=== PATIENT | male | born 1965 | race Caucasian/White ===

== ENCOUNTER 2016-10-04 12:41 | Inpatient (IN) | payer OTHER ==
[~2016-10-04 12:41] MED LIST: LACTATED RINGER'S 1000 ML INJ 1,000 ML IV ONE; NEOSTIGMINE 3 MG/3 ML SYR IV ONE; ONDANSETRON HCL 4 MG/2 ML VIAL IV PUSH ONE; PROPOFOL 200 MG/20 ML AMP IV ONE
[2016-10-04] MEDS ORDERED: ceFAZolin 2 GM PREMIX 50 ML ONE (12:44)
[2016-10-04] MEDS ORDERED: DIPHTH/TETANUS/ACEL PERTUSSIS (BOOSTER) 0.5 ML VIAL/PFS IM ONE ×2 (12:44→13:06)
[2016-10-04 12:48] VITALS: O2SAT 98
[2016-10-04] MEDS ORDERED: MORPHINE SULFATE 8 MG/ML INJ ONE (12:53)
[2016-10-04] MEDS ORDERED: ONDANSETRON HCL 4 MG/2 ML VIAL ONE (12:53)
[2016-10-04 13:01] LABS: BASOPHIL % 0.6 % (0.0-2.0); EOSINOPHIL # 0.1 TH/MM3 (0-0.4); EOSINOPHIL % 0.7 % (0.0-4.0); HEMATOCRIT 46.6 % (39.0-51.0); HEMO FLAGS DIFF FINAL; LYMPH % 28.4 % (9.0-44.0); LYMPHOCYTE # 2.4 TH/MM3 (1.0-4.8); MEAN CELL VOLUME 90.8 FL (80.0-100.0); MEAN CORPUSCULAR HEMOGLOBIN 31.5 PG (27.0-34.0); MEAN CORPUSCULAR HGB CONC 34.7 % (32.0-36.0); MONO % 10.3 % (0.0-8.0); PLATELET COUNT 171 TH/MM3 (150-450); RED BLOOD COUNT 5.14 MIL/MM3 (4.50-5.90); RED CELL DISTRIBUTION WIDTH 12.8 % (11.6-17.2); WHITE BLOOD COUNT 8.4 TH/MM3 (4.0-11.0)
[2016-10-04 13:02] LABS: I-STAT POTASSIUM 3.5 MMOL/L (3.5-4.9)
--- NOTE | 2016-10-04 13:03 | PD ---
HPI Chief Complaint: Trauma (Alert) Time Seen by Provider: 12:47 Travel History International Travel<30 days: No Contact w/Intl Traveler<30days: No Traveled to known affect area: No History of Present Illness HPI 51-year-old male complains of buttock injury. Patient states that he fell into a hole and got impaled into the buttock by 2 metal rods. Patient removed the metal rods out of his buttock himself. Patient complains of pain on the buttock area. Patient denies any headache. Patient denies any neck pain. Patient denies any chest pain or shortness of breath. Patient denies abdominal pain. Patient denies any focal weakness or numbness of extremity. Patient is not up-to-date with TD booster. Patient denies any medical history. Patient denies any routine medication. Patient denies any allergy. Allergies-Medications (Allergen,Severity, Reaction): Coded Allergies: No Known Allergies (Unverified , 10/04/16) Review of Systems General / Constitutional: No: Fever Eyes: No: Visual changes HENT: No: Headaches Cardiovascular: No: Chest Pain or Discomfort Respiratory: No: Shortness of Breath Gastrointestinal: No: Abdominal Pain Genitourinary: No: Dysuria Musculoskeletal: No: Pain Skin: No Rash Neurologic: No: Weakness Psychiatric: No: Depression Endocrine: No: Polydipsia Hematologic/Lymphatic: No: Easy Bruising Physical Exam Narrative GENERAL: Well-nourished, well-developed patient. SKIN: Warm and dry. HEAD: Normocephalic. EYES: No scleral icterus. No injection or drainage. NECK: Supple, trachea midline. No JVD or lymphadenopathy. CARDIOVASCULAR: Regular rate and rhythm without murmurs, gallops, or rubs. RESPIRATORY: Breath sounds equal bilaterally. No accessory muscle use. GASTROINTESTINAL: Abdomen soft, non-tender, nondistended. MUSCULOSKELETAL: No cyanosis, or edema. BACK: Nontender without obvious deformity. No CVA tenderness. Patient has through and through wounds on the left buttock. The wounds are dirty. No active bleeding. Patient has a large wound on the right buttock also. The wound is dirty. No active bleeding. Data Data Last Documented VS Vital Signs Date Time Temp Pulse Resp B/P Pulse Ox O2 Delivery O2 Flow Rate FiO2 10/04/16 12:48 98 21 Orders Cefazolin 2 Gm Premix (Ancef 2 Gm Premix (10/04/16 12:44) Bowu-Pqq-Uigilt (Booster) Inj (Boostrix (10/04/16 12:44) I-Stat Profile (10/04/16 12:49) I-Stat Creatinine (10/04/16 12:49) Complete Blood Count With Diff (10/04/16 12:49) Prothrombin Time / Inr (Pt) (10/04/16 12:49) Act Partial Throm Time (Ptt) (10/04/16 12:49) Type And Screen (10/04/16 12:49) Chest, Single Ap (10/04/16 12:49) Pelvis, Ap Only (Routine) (10/04/16 12:49) Ct Abd/Pel W Iv Contrast(Rout) (10/04/16 12:49) Iv Access Insert/Monitor (10/04/16 12:49) Ecg Monitoring (10/04/16 12:49) Oximetry (10/04/16 12:49) Oxygen Administration (10/04/16 12:49) Morphine Inj (Morphine Inj) (10/04/16 12:53) Ondansetron Inj (Zofran Inj) (10/04/16 12:53) Ct Thorax/ Chest W Iv Contrast (10/04/16 12:54) Admit Order (Ed Use Only) (10/04/16 13:03) Labs Laboratory Tests Test 10/04/16 12:48 White Blood Count 8.4 TH/MM3 Red Blood Count 5.14 MIL/MM3 Hemoglobin 16.2 GM/DL Bedside Hemoglobin 16.7 G/DL Hematocrit 46.6 % Bedside Hematocrit 49.0 % Mean Corpuscular Volume 90.8 FL Mean Corpuscular Hemoglobin 31.5 PG Mean Corpuscular Hemoglobin 34.7 % Concent Red Cell Distribution Width 12.8 % Platelet Count 171 TH/MM3 Mean Platelet Volume 8.9 FL Neutrophils (%) (Auto) 60.0 % Lymphocytes (%) (Auto) 28.4 % Monocytes (%) (Auto) 10.3 % Eosinophils (%) (Auto) 0.7 % Basophils (%) (Auto) 0.6 % Neutrophils # (Auto) 5.0 TH/MM3 Lymphocytes # (Auto) 2.4 TH/MM3 Monocytes # (Auto) 0.9 TH/MM3 Eosinophils # (Auto) 0.1 TH/MM3 Basophils # (Auto) 0.0 TH/MM3 CBC Comment DIFF FINAL Differential Comment Prothrombin Time 10.7 SEC Prothromb Time International 1.0 RATIO Ratio Activated Partial 21.4 SEC Thromboplast Time Bedside Sodium 140 MMOL/L Bedside Potassium 3.5 MMOL/L Bedside Chloride 105 MMOL/L Bedside Blood Urea Nitrogen 17 MG/DL Bedside Creatinine 1.2 MG/DL Bedside Glucose 116 MG/DL Blood Type O POSITIVE Antibody Screen NEGATIVE MDM Medical Screen Exam Complete: Yes Emergency Medical Condition: Yes Interpretation(s) 1358 PM. CBC within normal limit. BMP within normal limit. Differential Diagnosis Differential diagnosis including soft tissue injury, bony injury, intra-pelvic abdominal injury. Narrative Course 51-year-old male was impaled by metal rods on the buttock bilateral. TD booster given. Ancef 2 g IV. Morphine 4 mg IV. Zofran 4 mg IV. Normal saline solution 1 25 cc an hour. Trauma Alert - Level One Trauma Alert Level One: Full trauma team activate Time Surgeon Summoned: 12:43 Diagnosis Diagnosis: Primary Impression: Penetrating injury Admitting Physician Requests: Admit Miguel Limon MD Oct 04, 2016 13:03
[2016-10-04] MEDS ORDERED: ceFAZolin 2 GM PREMIX 50 ML IV STA (13:06)
[2016-10-04 13:10] LABS: APTT (PATIENT) 21.4 SEC (24.3-30.1); PROTHROMBIN TIME - PATIENT 10.7 SEC (9.8-11.6)
--- NOTE | 2016-10-04 13:26 | RADRPT ---
EXAM DATE/TIME: 10/04/2016 12:41 [facility] COMPARISON: No previous studies available for comparison. INDICATIONS : Trauma, impailed through buttocks. MEDICAL HISTORY : None. SURGICAL HISTORY : None. ENCOUNTER: Initial ACUITY: 1 day PAIN SCORE: 10/10 LOCATION: Bilateral pelvis FINDINGS: Soft tissue edema is identified in the left buttocks region extending from the iliac wing to the infe rior gluteal crease. Several small dense foreign bodies are seen along the track. Bony structures are intact. Soft tissue structures don't show was unremarkable. CONCLUSION: Soft tissue swelling and small foreign bodies identified in the left buttocks region following trauma . Boris Torres MD on October 04, 2016 at 13:23 Board Certified Radiologist. This report was verified electronically.
--- NOTE | 2016-10-04 13:27 | RADRPT ---
EXAM DATE/TIME: 10/04/2016 12:41 [facility] COMPARISON: No previous studies available for comparison. INDICATIONS : Impailed with rebar through buttocks. Trauma MEDICAL HISTORY : None. SURGICAL HISTORY : None. ENCOUNTER: Initial ACUITY: 1 day PAIN SCORE: 9/10 LOCATION: Bilateral chest FINDINGS: A single view of the chest demonstrates the lungs to be symmetrically aerated without evidence of mas s, infiltrate or effusion. The cardiomediastinal contours are unremarkable. Osseous structures are intact. CONCLUSION: No acute disease. Boris Torres MD on October 04, 2016 at 13:25 Board Certified Radiologist. This report was verified electronically.
[2016-10-04] MEDS ORDERED: IOHEXOL 350 MG/ML 10 ML VIAL (for RAD DIAG) IV ONE (13:29)
[2016-10-04] MEDS ORDERED: ceFAZolin 2 GM PREMIX 50 ML IV SCH (13:30)
[2016-10-04 13:40] VITALS: BP 128/80; PULSE 85; RESP 16; O2SAT 99
[2016-10-04] MEDS ORDERED: ARTIFICIAL TEARS OPTH OINT 3.5 APPLIC/3.5 GM TUBO ONE (13:45)
--- NOTE | 2016-10-04 13:57 | RADRPT ---
EXAM DATE/TIME: 10/04/2016 13:01 [facility] COMPARISON: No previous studies available for comparison. INDICATIONS: Trauma alert fell 20 feet puncture wound to both side of buttocks IV CONTRAST: 96 cc Omnipaque 350 (iohexol) IV; Cumulative dose for multiple exams. ORAL CONTRAST: No oral contrast ingested. RADIATION DOSE: 8.31 CTDIvol (mGy) ; Combined studies - Thorax/Abdomen/Pelvis MEDICAL HISTORY: None SURGICAL HISTORY: None. ENCOUNTER: Initial ACUITY: 1 day PAIN SCALE: 7/10 LOCATION: Abdomen TECHNIQUE: Volumetric scanning of the abdomen and pelvis was performed. Using automated exposure control and ad justment of the mA and/or kV according to patient size, radiation dose was kept as low as reasonably achievable to obtain optimal diagnostic quality images. FINDINGS: Lung bases are clear. The liver, spleen, pancreas, adrenals and kidneys are unremarkable. There is s ymmetrical renal function. There is subcutaneous air entering from both the right and the left. Subcutaneous air on the left is in the gluteal fat. Subcutaneous air on the right is in the rectus muscle but does not penetrate more than 1.5 cm into th e rectus muscle. Perirectal tissue is intact. There is no evidence for violation of either the retroperitoneum or the peritoneum. Review of the bone windows are unremarkable. CONCLUSION: Evidence for soft tissue injury as described above. Scattered radiopaque foreign material is present in the left gluteus. Nolberto James MD FACR on October 04, 2016 at 13:49 Board Certified Radiologist. This report was verified electronically.
[2016-10-04] MEDS ORDERED: LACTATED RINGER'S 1,000 ML BAG XX ONE (14:00)
[2016-10-04] MEDS ORDERED: metroNIDAZOLE 500 MG INJ 100 ML IV SCH (14:00)
[2016-10-04] MEDS ORDERED: HYDROmorphone HCL PF 2 MG/ML VIAL ONE (14:04)
[2016-10-04] MEDS ORDERED: VANCOMYCIN HCL 1000 MG VIAL ONE ×2 (14:05→14:40)
[2016-10-04] MEDS ORDERED: ceFAZolin INJ 1,000 MG VIAL ONE ×2 (14:08→14:40)
--- NOTE | 2016-10-04 14:19 | HHI.HP ---
History of Present Illness Primary Care Physician Unknown Admission Diagnosis penetrating injury buttock Diagnoses: History of Present Illness 51-year-old male fell about 15 feet. Impaled his buttocks 2 with dirty metallic foreign bodies. Was upgraded to a trauma alert as he presented to the ER walking. He is somewhat dynamically normal neuro intact pain in his buttock areas. Review of Systems Constitutional: DENIES: Diaphoretic episodes, Fatigue, Fever, Weight gain, Weight loss, Chills, Dizziness, Change in appetite, Night Sweats Endocrine: DENIES: Heat/cold intolerance, Polydipsia, Polyuria, Polyphagia Eyes: DENIES: Blurred vision, Diplopia, Eye inflammation, Eye pain, Vision loss , Photosensitivity, Double Vision Ears, nose, mouth, throat: DENIES: Tinnitus, Hearing loss, Vertigo, Nasal discharge, Oral lesions, Throat pain, Hoarseness, Ear Pain, Running Nose, Epistaxis, Sinus Pain, Toothache, Odynophagia Respiratory: DENIES: Apneas, Cough, Snoring, Wheezing, Hemoptysis, Sputum production, Shortness of breath Cardiovascular: DENIES: Chest pain, Palpitations, Syncope, Dyspnea on Exertion , PND, Lower Extremity Edema, Orthopnea, Claudication Gastrointestinal: DENIES: Abdominal pain, Black stools, Bloody stools, Constipation, Diarrhea, Nausea, Vomiting, Difficulty Swallowing, Anorexia Genitourinary: DENIES: Sexual dysfunction, Urinary frequency, Urinary incontinence, Urgency, Hematuria, Dysuria, Nocturia, Penile Discharge, Testicular Pain, Testicular Swelling Musculoskeletal: DENIES: Joint pain, Muscle aches, Stiffness, Joint Swelling, Back pain, Neck pain Integumentary: DENIES: Abnormal pigmentation, Nail changes, Pruritus, Rash Hematologic/lymphatic: DENIES: Bruising, Lymphadenopathy Immunologic/allergic: DENIES: Eczema, Urticaria Neurologic: DENIES: Abnormal gait, Headache, Localized weakness, Paresthesias, Seizures, Speech Problems, Tremor, Poor Balance Psychiatric: DENIES: Anxiety, Confusion, Mood changes, Depression, Hallucinations, Agitation, Suicidal Ideation, Homicidal Ideation, Delusions Past Family Social History Allergies: Coded Allergies: No Known Allergies (Unverified , 10/04/16) Past Surgical History S post skin grafting Reported Medications Medications none Active Ordered Medications Ancef morphine Family History none Social History Drug abuse Physical Exam Vital Signs Vital Signs Date Time Temp Pulse Resp B/P Pulse Ox O2 Delivery O2 Flow Rate FiO2 10/04/16 13:40 85 16 128/80 99 Room Air 10/04/16 12:48 98 21 Physical Exam GENERAL: This is a well-nourished, well-developed patient, in mild distress. SKIN: No rashes, ecchymoses or lesions. Cool and dry. HEAD: Atraumatic. Normocephalic. No temporal or scalp tenderness. EYES: Pupils equal round and reactive. Extraocular motions intact. No scleral icterus. No injection or drainage. ENT: Nose without bleeding, purulent drainage or septal hematoma. Throat without erythema, tonsillar hypertrophy or exudate. Uvula midline. Airway patent. NECK: Trachea midline. No JVD or lymphadenopathy. Supple, nontender, no meningeal signs. CARDIOVASCULAR: Regular rate and rhythm without murmurs, gallops, or rubs. RESPIRATORY: Clear to auscultation. Breath sounds equal bilaterally. No wheezes , rales, or rhonchi. GASTROINTESTINAL: Abdomen soft, non-tender, nondistended. gluteal area left 2 wounds,right one wound. MUSCULOSKELETAL: Extremities without clubbing, cyanosis, or edema. No joint tenderness, effusion, or edema noted. No calf tenderness. Negative Homans sign bilaterally. NEUROLOGICAL: Awake and alert. Cranial nerves II through XII intact. Motor and sensory grossly within normal limits. Five out of 5 muscle strength in all muscle groups. Normal speech. Laboratory Laboratory Tests Test 10/04/16 12:48 White Blood Count 8.4 Red Blood Count 5.14 Hemoglobin 16.2 Bedside Hemoglobin 16.7 Hematocrit 46.6 Bedside Hematocrit 49.0 Mean Corpuscular Volume 90.8 Mean Corpuscular Hemoglobin 31.5 Mean Corpuscular Hemoglobin 34.7 Concent Red Cell Distribution Width 12.8 Platelet Count 171 Mean Platelet Volume 8.9 Neutrophils (%) (Auto) 60.0 Lymphocytes (%) (Auto) 28.4 Monocytes (%) (Auto) 10.3 Eosinophils (%) (Auto) 0.7 Basophils (%) (Auto) 0.6 Neutrophils # (Auto) 5.0 Lymphocytes # (Auto) 2.4 Monocytes # (Auto) 0.9 Eosinophils # (Auto) 0.1 Basophils # (Auto) 0.0 CBC Comment DIFF FINAL Differential Comment Prothrombin Time 10.7 Prothromb Time International 1.0 Ratio Activated Partial 21.4 Thromboplast Time Bedside Sodium 140 Bedside Potassium 3.5 Bedside Chloride 105 Bedside Blood Urea Nitrogen 17 Bedside Creatinine 1.2 Bedside Glucose 116 Blood Type O POSITIVE Antibody Screen NEGATIVE Result Diagram: 10/04/16 1248 Imaging no intraabdominal /rectal injury Course stable Assessment and Plan Assessment and Plan impalement gluteal area 2 objects were in the buckle sewer machine-extremely dirty no Intra-abdominal including rectal injury Reviewed the CT scan with the radiologist IV antibiotic OR for exploration and washout Jayla Huynh MD Oct 04, 2016 14:19
--- NOTE | 2016-10-04 14:21 | RADRPT ---
EXAM DATE/TIME: 10/04/2016 13:01 [facility] COMPARISON: CHEST SINGLE AP, October 04, 2016, 12:41. INDICATIONS : Trauma alert,punture wounds to buttox. IV CONTRAST: 96 cc Omnipaque 350 (iohexol) IV ; Cumulative dose for multiple exams. RADIATION DOSE: 8.31 CTDIvol (mGy) ; Combined studies - Thorax/Abdomen/Pelvis MEDICAL HISTORY : None SURGICAL HISTORY : None. ENCOUNTER: Initial ACUITY: 1 day PAIN SCALE: 7/10 LOCATION: chest TECHNIQUE: Volumetric scanning of the chest was performed. Using automated exposure control and adjustment of t he mA and/or kV according to patient size, radiation dose was kept as low as reasonably achievable to obtain optimal diagnostic quality images. FINDINGS: LUNGS: There is no consolidation or pneumothorax. No concerning pulmonary nodule is visualized. PLEURA: There is no pleural thickening or pleural effusion. MEDIASTINUM: The heart and great vessels demonstrate no acute abnormality. There is no mediastinal or hilar lymph adenopathy. AXILLAE: Within normal limits. No lymphadenopathy. SKELETAL: Within normal limits for patient age. MISCELLANEOUS: The visualized upper abdominal organs demonstrate no acute abnormality. CONCLUSION: Normal examination. Sheryl Mejia MD on October 04, 2016 at 13:47 Board Certified Radiologist. This report was verified electronically.
--- NOTE | 2016-10-04 15:25 | PD.OP ---
Operative Report Gluteal wound left 2, right 1-both complex Postoperative Diagnosis: Detailed wound left 2 right Times one both complex Procedure: Patient was brought into the operating room was identified as the patient opted general anesthesia patient was placed in prone position. Exploration of both wounds. The one wound on the right gluteal area is deep 8 3 cm-expanding subcutaneous tissue level medially. Debridement was performed necrotic tissue with hemostatic technique, washout was performed with antibiotic solution. This wound was then packed with Kerlix . Attention was returned to do a left- sided wound.. There are 2 wounds one distal and one proximal and there is tunneling collecting dose 2 wounds. The tunneling is at subcutaneous level. The length of the wound including tunneling was about 20 cm. The wound is contaminated trough the tunneling on all proportions with a black substance- similar consistency like tar. Substance is very difficult to remove from underlying tissue. Both open wounds excision of necrotic tissue was performed. The proximal wound is 44 cm, distal wound 65. Irrigation was performed with antibiotic solution. Both wounds not extend to the area of the rectum-is also confirmed with the CT scan performed prior to the procedure. Wound VAC sponge was inserted to the left-sided wound vacuum established. Patient will require return to the OR for further exploration. He may need unroofing of this area becomes infected or necrotic. He overall tolerated procedure well. Postoperatively he will be started on IV antibiotics. Anesthesia: Gen. Surgeon: Jayla Huynh Slipman(s): OR team Operation and Findings: Exploration and washout bilateral gluteal wounds Wound VAC application left wound 51-year-old male who fell from a contaminated area likely hat and cap sewer. He was impaled with 2 dirty foreign objects-to self remove this objects. The CT scan of the abdomen and pelvis shows no involvement of the rectum this wounds are purely in the gluteal area. He was brought to the OR for exploration and washout. Jayla Huynh MD Oct 04, 2016 15:25
[2016-10-04] MEDS ORDERED: fentaNYL CITRATE 250 MCG/5 ML AMP ONE (15:34)
[2016-10-04] MEDS: LACTATED RINGER'S 1000 ML INJ 1,000 ML IV SCH (15:45)
[2016-10-04] MEDS ORDERED: DO NOT ADM ANY ANTICOAGULANT DRUGS XX PRN (15:45)
[2016-10-04] MEDS ORDERED: *MEPERIDINE 25 MG INJ VIAL PERIprocedural Use ONLY ONE (15:46)
[2016-10-04] MEDS ORDERED: *MEPERIDINE 25 MG INJ VIAL PERIprocedural Use ONLY IVP ONE (15:46)
[2016-10-04] MEDS ORDERED: LORazepam 2 MG/ML VIAL ONE (15:55)
[2016-10-04] MEDS ORDERED: LORazepam 2 MG/ML VIAL IV ONE (17:00)
[2016-10-04 17:12] VITALS: BP 131/68; PULSE 93; RESP 18; TEMP 97.9; O2SAT 98
[2016-10-04] MEDS: PIPERACIL-TAZO 3.375 GM PREMIX 50 ML IV SCH ×2 (17:54→22:22)
[2016-10-04] MEDS: HYDROmorphone HCL PF 1 MG/ML VIAL IV PUSH PRN (18:50)
[2016-10-04 20:00] VITALS: BP 116/56; PULSE 94; RESP 17; TEMP 99.2; O2SAT 100
[2016-10-04] MEDS: SODIUM CHLORIDE 0.9% FLUSH 5 ML FLUSH IV FLUSH SCH (22:22)
[2016-10-05] VITALS (7 sets, daily range): BP systolic 91–130; BP diastolic 55–64; PULSE 82–111; RESP 17–19; TEMP 97.4–99.3; O2SAT 95–99
[2016-10-05] MEDS: LACTATED RINGER'S 1000 ML INJ 1,000 ML IV SCH ×2 (02:03→13:51)
[2016-10-05] MEDS: HYDROmorphone HCL PF 1 MG/ML VIAL IV PUSH PRN ×5 (04:46→21:59)
[2016-10-05] MEDS: PIPERACIL-TAZO 3.375 GM PREMIX 50 ML IV SCH ×4 (04:47→21:59)
[2016-10-05] MEDS: REMOVE OLD NICODERM (NICOTINE) PATCH TD SCH (07:54)
[2016-10-05] MEDS: NICOTINE 21 MG/24 HR PATCH TD SCH (07:54)
[2016-10-05] MEDS: SODIUM CHLORIDE 0.9% FLUSH 5 ML FLUSH IV FLUSH SCH ×2 (07:55→20:31)
[2016-10-05] MEDS: ENOXAPARIN SODIUM 30 MG/0.3 ML SYRINGE SQ SCH (13:49)
--- NOTE | 2016-10-05 14:59 | HHI.PR ---
Subjective Subjective Notes PTD: 1 Patient is asking if he can go home. Discussed plan of care, and possible need for an additional surgery to washout his wounds. Patient complains of pain to both his buttocks. But states that the IV pain medication makes him "woozy." Objective Vitals/I&O Vital Signs Date Time Temp Pulse Resp B/P Pulse Ox O2 Delivery O2 Flow Rate FiO2 10/05/16 12:30 97 21 10/05/16 11:45 98.0 111 18 130/64 10/05/16 01:28 Nasal Cannula 1.00 Labs Laboratory Tests Test 10/04/16 12:48 White Blood Count 8.4 TH/MM3 Red Blood Count 5.14 MIL/MM3 Hemoglobin 16.2 GM/DL Bedside Hemoglobin 16.7 G/DL Hematocrit 46.6 % Bedside Hematocrit 49.0 % Mean Corpuscular Volume 90.8 FL Mean Corpuscular Hemoglobin 31.5 PG Mean Corpuscular Hemoglobin 34.7 % Concent Red Cell Distribution Width 12.8 % Platelet Count 171 TH/MM3 Mean Platelet Volume 8.9 FL Neutrophils (%) (Auto) 60.0 % Lymphocytes (%) (Auto) 28.4 % Monocytes (%) (Auto) 10.3 % Eosinophils (%) (Auto) 0.7 % Basophils (%) (Auto) 0.6 % Neutrophils # (Auto) 5.0 TH/MM3 Lymphocytes # (Auto) 2.4 TH/MM3 Monocytes # (Auto) 0.9 TH/MM3 Eosinophils # (Auto) 0.1 TH/MM3 Basophils # (Auto) 0.0 TH/MM3 CBC Comment DIFF FINAL Differential Comment Prothrombin Time 10.7 SEC Prothromb Time International 1.0 RATIO Ratio Activated Partial 21.4 SEC Thromboplast Time Bedside Sodium 140 MMOL/L Bedside Potassium 3.5 MMOL/L Bedside Chloride 105 MMOL/L Bedside Blood Urea Nitrogen 17 MG/DL Bedside Creatinine 1.2 MG/DL Bedside Glucose 116 MG/DL Blood Type O POSITIVE Antibody Screen NEGATIVE Radiology Last Impressions Chest CT 10/04/16 1254 Signed Impressions: Service Date/Time: Tuesday, October 04, 2016 13:01 - CONCLUSION: Normal examination. Sheryl Mejia MD Pelvis X-Ray 10/04/16 1249 Signed Impressions: Service Date/Time: Tuesday, October 04, 2016 12:41 - CONCLUSION: Soft tissue swelling and small foreign bodies identified in the left buttocks region following trauma. Boris Torres MD Chest X-Ray 10/04/16 1249 Signed Impressions: Service Date/Time: Tuesday, October 04, 2016 12:41 - CONCLUSION: No acute disease. Boris Torres MD Abdomen/Pelvis CT 10/04/16 1249 Signed Impressions: Service Date/Time: Tuesday, October 04, 2016 13:01 - CONCLUSION: Evidence for soft tissue injury as described above. Scattered radiopaque foreign material is present in the left gluteus. Nolberto James MD FACR Narrative Exam GENERAL: This is a 51-year-old gentleman standing at the bedside. SKIN: Warm and dry. Large dressing noted to RIGHT sided buttocks. Wound VAC in place to the LEFT buttocks with good seal. HEAD: Atraumatic. Normocephalic. EYES: PERRLA ENT: No nasal bleeding or discharge. Mucous membranes pink and moist. NECK: Trachea midline. No JVD. CARDIOVASCULAR: Regular rate and rhythm. RESPIRATORY: No accessory muscle use. Lungs are clear to auscultation. Breath sounds equal bilaterally. No distress or dyspnea. GASTROINTESTINAL: BS + x 4 quads. Abdomen soft, non-tender, nondistended. MUSCULOSKELETAL: Extremities without cyanosis, or edema. + peripheral pulses x 4 extremities. Warm with good capillary refill and sensation. MAEW. NEUROLOGICAL: Awake and alert. Normal speech and pattern. A/P Problem List: (1) Penetrating injury Assessment and Plan [place]: This is a 51-year-old gentleman who fell approximately 15 feet. He was impaled in his buttocks 2 with dirty metal rods. Patient self removed them prior to arriving to the hospital. INJURIES: Penetrating injury to bilateral buttocks Diet: Regular diet. Tolerating po diet. Encourage good po intake with each meal. Pulmonary: Encourage good pulmonary toileting. IS at bedside and pt encouraged to use. Rationale for use explained to patient, and verbalized understanding. PAIN Management: Dilaudid IV. Added Percocet by mouth. Hepatitis profile to be obtained. Provided patient with hepatitis vaccines due to injury. Activity: OOB with assist. PT ordered. GI prophylaxis: Pepcid at bedtime Bowel regimen: Colace and MOM. DVT prophylaxis: Mechanical VTE with SCDs. Chemical management with Lovenox 30 q day. DC Planning: Case management consulted for assistance with final discharge disposition. Emotional support provided to patient and family at bedside and plan of care discussed. Discussed with RN at bedside. Patient is hemodynamically stable and being managed on the med/surg floor. Amy Landa Oct 05, 2016 14:59
[2016-10-05] MEDS: oxyCODONE/ACETAMINOPHEN 5 MG/325 MG TAB PO PRN (18:00)
[2016-10-05] MEDS: MAGNESIUM HYDROXIDE SUSP 30 ML CUP PO SCH (20:30)
[2016-10-05] MEDS: DOCUSATE SODIUM 100 MG CAP PO SCH (20:30)
[2016-10-05] MEDS: FAMOTIDINE 20 MG TAB PO SCH (20:31)
[2016-10-06] VITALS: BP 107/57; PULSE 81; RESP 17; TEMP 97.9; O2SAT 97
[2016-10-06] MEDS: HYDROmorphone HCL PF 1 MG/ML VIAL IV PUSH PRN ×4 (02:09→21:23)
[2016-10-06] MEDS: LACTATED RINGER'S 1000 ML INJ 1,000 ML IV SCH ×2 (02:14→20:31)
[2016-10-06] MEDS: PIPERACIL-TAZO 3.375 GM PREMIX 50 ML IV SCH ×4 (05:23→22:52)
[2016-10-06] MEDS: REMOVE OLD NICODERM (NICOTINE) PATCH TD SCH (07:54)
[2016-10-06] MEDS: NICOTINE 21 MG/24 HR PATCH TD SCH (07:54)
[2016-10-06] MEDS: DOCUSATE SODIUM 100 MG CAP PO SCH ×2 (07:56→20:29)
[2016-10-06] MEDS: SODIUM CHLORIDE 0.9% FLUSH 5 ML FLUSH IV FLUSH SCH ×2 (07:56→20:29)
[2016-10-06 08:00] VITALS: BP 128/68; PULSE 89; RESP 18; TEMP 97.9; O2SAT 95
--- NOTE | 2016-10-06 11:15 | HHI.FF ---
Face to Face Verification Diagnosis: (1) Penetrating injury Home Health Nursing Order: Medical education Signs/symptoms of disease process Wound care and dressing changes Nursing assessment with vital signs I have seen patient Stacy Good Chris, III on 10/06/16. My clinical findings support the need for the requested home health care services because: Ltd mobility - disease progression Limited ability to care for self Infection w/ risk of complications I certify that my clinical findings support that this patient is homebound because: Post-op weakness Amy Landa Oct 06, 2016 11:15
[2016-10-06 12:00] VITALS: BP 126/70; PULSE 84; RESP 18; TEMP 97.8; O2SAT 96
[2016-10-06] MEDS ORDERED: NEOSTIGMINE 3 MG/3 ML SYR IV ONE (12:00)
[2016-10-06] MEDS ORDERED: PROPOFOL 200 MG/20 ML AMP IV ONE (12:00)
[2016-10-06] MEDS ORDERED: PHENYLEPH/NS 1000 MCG/10 ML SYR IV ONE (12:00)
[2016-10-06] MEDS: ENOXAPARIN SODIUM 30 MG/0.3 ML SYRINGE SQ SCH (14:00)
--- NOTE | 2016-10-06 14:46 | HHI.PR ---
Subjective Subjective Notes PTD: 2 1000: Patient asleep, and arouses easily. Patient would really like to go home. He states he needs to get back to work. Discussed plan for further surgery later today, and patient is agreeable. Objective Vitals/I&O Vital Signs Date Time Temp Pulse Resp B/P Pulse Ox O2 Delivery O2 Flow Rate FiO2 10/06/16 12:00 97.8 84 18 126/70 96 10/05/16 12:30 21 10/05/16 01:28 Nasal Cannula 1.00 Labs Laboratory Tests Test 10/06/16 04:19 Hepatitis A IgM Antibody NEGATIVE Hepatitis B Surface Antigen NEGATIVE Hepatitis B Core IgM Antibody NEGATIVE Hepatitis C Antibody NEGATIVE Radiology Last Impressions Chest CT 10/04/16 1254 Signed Impressions: Service Date/Time: Tuesday, October 04, 2016 13:01 - CONCLUSION: Normal examination. Sheryl Mejia MD Pelvis X-Ray 10/04/16 1249 Signed Impressions: Service Date/Time: Tuesday, October 04, 2016 12:41 - CONCLUSION: Soft tissue swelling and small foreign bodies identified in the left buttocks region following trauma. Boris Torres MD Chest X-Ray 10/04/16 1249 Signed Impressions: Service Date/Time: Tuesday, October 04, 2016 12:41 - CONCLUSION: No acute disease. Boris Torres MD Abdomen/Pelvis CT 10/04/16 1249 Signed Impressions: Service Date/Time: Tuesday, October 04, 2016 13:01 - CONCLUSION: Evidence for soft tissue injury as described above. Scattered radiopaque foreign material is present in the left gluteus. Nolbetro James MD FACR Narrative Exam GENERAL: This is a 51-year-old gentleman in bed. SKIN: Warm and dry. Large dressing noted to RIGHT sided buttocks. Wound VAC in place to the LEFT buttocks with good seal. HEAD: Atraumatic. Normocephalic. EYES: PERRLA ENT: No nasal bleeding or discharge. Mucous membranes pink and moist. NECK: Trachea midline. No JVD. CARDIOVASCULAR: Regular rate and rhythm. RESPIRATORY: No accessory muscle use. Lungs are clear to auscultation. Breath sounds equal bilaterally. No distress or dyspnea. GASTROINTESTINAL: BS + x 4 quads. Abdomen soft, non-tender, nondistended. MUSCULOSKELETAL: Extremities without cyanosis, or edema. + peripheral pulses x 4 extremities. Warm with good capillary refill and sensation. MAEW. NEUROLOGICAL: Awake and alert. Normal speech and pattern. A/P Problem List: (1) Penetrating injury Assessment and Plan [place]: This is a 51-year-old gentleman who fell approximately 15 feet. He was impaled in his buttocks 2 with dirty metal rods. Patient self removed them prior to arriving to the hospital. INJURIES: Penetrating injury to bilateral buttocks Diet: NPO for surgery later today. Pulmonary: Encourage good pulmonary toileting. IS at bedside and pt encouraged to use. Rationale for use explained to patient, and verbalized understanding. PAIN Management: Dilaudid IV. Added Percocet by mouth. Hepatitis profile to be obtained. Provided patient with hepatitis vaccines due to injury. Activity: OOB with assist. PT ordered. GI prophylaxis: Pepcid at bedtime Bowel regimen: Colace and MOM. DVT prophylaxis: Mechanical VTE with SCDs. Chemical management with Lovenox 30 q day. DC Planning: Case management consulted for assistance with final discharge disposition. Patient will need home health care with an RN in to perform daily dressing changes. (He may even go home with a wound VAC) Education: Spoke with patient at length regarding the nature of this injury and high risk for infection. Explained plan for surgery later today and rationale. Discussed further need for home health care nursing with dressing changes once he is discharged. Discussed recommendation not to return back to work, unless he could be provided light duty/desk duty. Emotional support provided to patient at bedside and plan of care discussed. Discussed with RN at bedside. Patient is hemodynamically stable and being managed on the med/surg floor. seen and examined with [employer]-agree with assesment and plan Amy Landa Oct 06, 2016 14:46 Jayla Huynh MD Oct 07, 2016 09:36
[2016-10-06] MEDS ORDERED: ONDANSETRON HCL 4 MG/2 ML VIAL ONE (14:48)
[2016-10-06] MEDS ORDERED: fentaNYL CITRATE 250 MCG/5 ML AMP ONE ×2 (14:48→15:16)
[2016-10-06] MEDS ORDERED: VANCOMYCIN HCL 1000 MG VIAL ONE (15:39)
[2016-10-06] MEDS ORDERED: ceFAZolin INJ 1,000 MG VIAL ONE (15:39)
[2016-10-06] MEDS ORDERED: *MEPERIDINE 25 MG INJ VIAL PERIprocedural Use ONLY ONE (16:50)
[2016-10-06] MEDS ORDERED: MIDAZOLAM HCL 2 MG/2 ML VIAL ONE (16:53)
--- NOTE | 2016-10-06 16:58 | PD.OP ---
Operative Report Complex wounds bilateral gluteal area Postoperative Diagnosis: Complex wounds bilateral gluteal area Procedure: Irrigation debridement and wound VAC insertion Anesthesia: Gen. Surgeon: Jayla Huynh Brake Lining Maker(s): recreation assistant or Operation and Findings: Indication: 51-year-old male who sustained complex bilateral gluteal wounds after falling and getting impaled with contaminated material. Today he his being brought to the OR for further washout debridement and wound VAC insertion. Patient was brought into the operating was identified as the patient. After administration of general anesthesia patient's bilateral gluteal area was sterilely prepped and draped using the usual technique. Procedure was performed in prone position. Wound VAC was removed from the left-sided wound and and also packing from right-sided wound. Both wounds show excellent granulation and are clean without any signs of infection. Minimal amount of debridement was performed from the left-sided proximal wound. VAC was inserted- and negative pressure was established. Size of the wounds: right-sided wound length is 85-additional proximal tunneling 7 cm left-sided wounds are 33, 4 3cm with 20 cm tunneling in between the wounds. Patient tolerated procedure well. Jayla Huynh MD Oct 06, 2016 16:58
[2016-10-06] MEDS ORDERED: ONDANSETRON HCL 4 MG/2 ML VIAL IV PRN (17:15)
[2016-10-06] MEDS ORDERED: DO NOT ADM ANY ANTICOAGULANT DRUGS XX PRN (17:15)
[2016-10-06] MEDS ORDERED: Post-op Orders (for Pharmacy) MISC XX ONE (17:15)
[2016-10-06] MEDS ORDERED: SODIUM CHLORIDE 0.9% FLUSH 5 ML FLUSH IVF PRN (17:15)
[2016-10-06] MEDS ORDERED: *morphine SULFATE 8 MG/ML PERIprocedure ONLY ONE (17:33)
[2016-10-06] MEDS: SODIUM CHLORIDE 0.9% FLUSH 5 ML FLUSH IV FLUSH PRN (18:15)
[2016-10-06 20:00] VITALS: BP 109/63; PULSE 87; RESP 22; TEMP 96.8; O2SAT 97
[2016-10-06] MEDS: MAGNESIUM HYDROXIDE SUSP 30 ML CUP PO SCH (20:29)
[2016-10-06] MEDS: FAMOTIDINE 20 MG TAB PO SCH (20:29)
[2016-10-06] MEDS ORDERED: SODIUM CHLORIDE 0.9% FLUSH 5 ML FLUSH IVF SCH (21:00)
[2016-10-06 21:09] VITALS: O2SAT 99
[2016-10-07] VITALS: BP 101/58; PULSE 78; RESP 20; TEMP 97.4; O2SAT 96
[2016-10-07] MEDS: HYDROmorphone HCL PF 1 MG/ML VIAL IV PUSH PRN ×3 (01:32→08:38)
[2016-10-07 04:37] LABS: HEMATOCRIT 37.1 % (39.0-51.0); MEAN CELL VOLUME 91.3 FL (80.0-100.0); MEAN CORPUSCULAR HGB CONC 33.9 % (32.0-36.0); PLATELET COUNT 104 TH/MM3 (150-450); RED BLOOD COUNT 4.06 MIL/MM3 (4.50-5.90); RED CELL DISTRIBUTION WIDTH 12.5 % (11.6-17.2); REVIEW FLAG FINAL; WHITE BLOOD COUNT 9.4 TH/MM3 (4.0-11.0)
[2016-10-07] MEDS: PIPERACIL-TAZO 3.375 GM PREMIX 50 ML IV SCH ×4 (04:42→23:42)
[2016-10-07 04:59] LABS: BICARBONATE 26.4 MEQ/L (21.0-32.0); MAGNESIUM 2.3 MG/DL (1.5-2.5)
[2016-10-07 08:00] VITALS: BP 104/57; PULSE 82; RESP 18; TEMP 97.2; O2SAT 95
[2016-10-07] MEDS: NICOTINE 21 MG/24 HR PATCH TD SCH (08:33)
[2016-10-07] MEDS: REMOVE OLD NICODERM (NICOTINE) PATCH TD SCH (08:33)
[2016-10-07] MEDS: DOCUSATE SODIUM 100 MG CAP PO SCH ×2 (08:33→20:15)
[2016-10-07] MEDS: SODIUM CHLORIDE 0.9% FLUSH 5 ML FLUSH IV FLUSH SCH ×2 (08:33→20:14)
[2016-10-07] MEDS ORDERED: LACTULOSE SYRUP 20 GM/30 ML CUP PO ONE (08:45)
[2016-10-07] MEDS ORDERED: AUGM875T PO (11:20)
[2016-10-07] MEDS ORDERED: IBUP-232 PO (11:38)
[2016-10-07] MEDS ORDERED: OXYC1CAP PO (11:38)
--- NOTE | 2016-10-07 11:54 | HHI.PR ---
Subjective Subjective Notes PTD: 3 Pt OOB talking on telephone. He is requesting to go home. Discussed his surgery and wound in detail and plan for home care and wound vac dressing changes. Explained that it may take time to make the [facility] arrangements. Pt is agreeable, and would really like to go home as soon as possible. Objective Vitals/I&O Vital Signs Date Time Temp Pulse Resp B/P Pulse Ox O2 Delivery O2 Flow Rate FiO2 10/07/16 08:00 97.2 82 18 104/57 95 10/06/16 17:30 Nasal Cannula 2 10/05/16 12:30 21 Labs Laboratory Tests Test 10/07/16 04:06 White Blood Count 9.4 Red Blood Count 4.06 Hemoglobin 12.6 Hematocrit 37.1 Mean Corpuscular Volume 91.3 Mean Corpuscular Hemoglobin 31.0 Mean Corpuscular Hemoglobin 33.9 Concent Red Cell Distribution Width 12.5 Platelet Count 104 Mean Platelet Volume 9.1 Sodium Level 138 Potassium Level 4.0 Chloride Level 105 Carbon Dioxide Level 26.4 Anion Gap 7 Blood Urea Nitrogen 10 Creatinine 0.92 Estimat Glomerular Filtration 87 Rate Random Glucose 98 Calcium Level 8.2 Magnesium Level 2.3 Radiology Last Impressions Chest CT 10/04/16 1254 Signed Impressions: Service Date/Time: Tuesday, October 04, 2016 13:01 - CONCLUSION: Normal examination. Sheryl Mejia MD Pelvis X-Ray 10/04/16 1249 Signed Impressions: Service Date/Time: Tuesday, October 04, 2016 12:41 - CONCLUSION: Soft tissue swelling and small foreign bodies identified in the left buttocks region following trauma. Boris Torres MD Chest X-Ray 10/04/16 1249 Signed Impressions: Service Date/Time: Tuesday, October 04, 2016 12:41 - CONCLUSION: No acute disease. Boris Torres MD Abdomen/Pelvis CT 10/04/16 1249 Signed Impressions: Service Date/Time: Tuesday, October 04, 2016 13:01 - CONCLUSION: Evidence for soft tissue injury as described above. Scattered radiopaque foreign material is present in the left gluteus. Nolberto James MD FACR Narrative Exam GENERAL: This is a 51-year-old standing OOB in his room. SKIN: Warm and dry. Wound VAC in place to the LEFT and RIGHT buttocks with good seal. HEAD: Atraumatic. Normocephalic. EYES: PERRLA ENT: No nasal bleeding or discharge. Mucous membranes pink and moist. NECK: Trachea midline. No JVD. CARDIOVASCULAR: Regular rate and rhythm. RESPIRATORY: No accessory muscle use. Lungs are clear to auscultation. Breath sounds equal bilaterally. No distress or dyspnea. GASTROINTESTINAL: BS + x 4 quads. Abdomen soft, non-tender, nondistended. MUSCULOSKELETAL: Extremities without cyanosis, or edema. + peripheral pulses x 4 extremities. Warm with good capillary refill and sensation. MAEW. NEUROLOGICAL: Awake and alert. Normal speech and pattern. A/P Problem List: (1) Penetrating injury Assessment and Plan [place]: This is a 51-year-old gentleman who fell approximately 15 feet. He was impaled in his buttocks 2 with dirty metal rods. Patient self removed them prior to arriving to the hospital. INJURIES: Penetrating injury to bilateral buttocks 10/04: Exploration, debridement and washout of 2 gluteal wounds w/ wound vac placement to LEFT gluteal wound 10/06: I&D of gluteal wounds with wound vac placement to both RIGHT and LEFT gluteal wounds. Diet: Regular diet. Pulmonary: Encourage good pulmonary toileting. IS at bedside and pt encouraged to use. Rationale for use explained to patient, and verbalized understanding. PAIN Management: Dilaudid IV. Percocet by mouth. Activity: OOB with assist. PT ordered. GI prophylaxis: Pepcid at bedtime Bowel regimen: Colace and MOM. DVT prophylaxis: Mechanical VTE with SCDs. Chemical management with Lovenox 30 q day. DC Planning: Case management consulted for assistance with final discharge disposition. Patient will need home health care with an RN in to perform wound vac dressing changes. Discussed plan for follow up in trauma office in approx 10 days. (Case management are arranging.) Home wound VAC, will not arrive until tomorrow. Dressing will be changed at the bedside in the hospital tomorrow, and home care will complete their first dressing change on October 11. Education: Spoke with patient at length regarding the nature of this injury and high risk for infection. He will continue on po ABX at home for 1 week. Emotional support provided to patient at bedside and plan of care discussed. Discussed with RN at bedside. Patient is hemodynamically stable and can be discharged with home health care once arranged. -seen and examined with [employer]-agree with above note Amy Landa Oct 07, 2016 11:54 Jayla Huynh MD Oct 07, 2016 19:20
[2016-10-07 12:00] VITALS: BP 106/66; PULSE 88; RESP 17; TEMP 97.9; O2SAT 95
[2016-10-07] MEDS: oxyCODONE/ACETAMINOPHEN 5 MG/325 MG TAB PO PRN (12:23)
[2016-10-07] MEDS ORDERED: MILKSUS PO (14:29)
[2016-10-07] MEDS ORDERED: DOCU1CAP39 PO (14:29)
[2016-10-07] MEDS ORDERED: ENOXAPARIN SODIUM 30 MG/0.3 ML SYRINGE SQ SCH (15:42)
[2016-10-07 20:00] VITALS: BP 124/64; PULSE 86; RESP 20; TEMP 97.5; O2SAT 94
[2016-10-07] MEDS: FAMOTIDINE 20 MG TAB PO SCH (20:15)
[2016-10-07] MEDS: MAGNESIUM HYDROXIDE SUSP 30 ML CUP PO SCH (20:15)
[2016-10-08] VITALS: BP 103/55; PULSE 89; RESP 18; TEMP 96.8; O2SAT 97
[2016-10-08] MEDS: SODIUM CHLORIDE 0.9% FLUSH 5 ML FLUSH IV FLUSH PRN (01:32)
[2016-10-08] MEDS: HYDROmorphone HCL PF 1 MG/ML VIAL IV PUSH PRN ×3 (01:32→12:21)
[2016-10-08] MEDS: PIPERACIL-TAZO 3.375 GM PREMIX 50 ML IV SCH ×2 (05:30→08:23)
[2016-10-08 08:00] VITALS: BP 115/75; PULSE 78; RESP 18; TEMP 97.3; O2SAT 96
[2016-10-08] MEDS: SODIUM CHLORIDE 0.9% FLUSH 5 ML FLUSH IV FLUSH SCH (08:22)
[2016-10-08] MEDS: DOCUSATE SODIUM 100 MG CAP PO SCH (08:23)
[2016-10-08] MEDS: NICOTINE 21 MG/24 HR PATCH TD SCH (08:23)
[2016-10-08] MEDS: REMOVE OLD NICODERM (NICOTINE) PATCH TD SCH (08:23)
[2016-10-08 12:00] VITALS: BP 143/81; PULSE 68; RESP 16; TEMP 98.1; O2SAT 96
[2016-10-08] MEDS ORDERED: OXYC1CAP PO (13:23)
[2016-10-08 15:50] VITALS: BP 120/62; PULSE 82; RESP 16; TEMP 98.3; O2SAT 97
--- NOTE | 2016-10-08 16:08 | HHI.DS ---
Discharge Summary Admission Date Oct 04, 2016 at 13:05 Discharge Date: Oct 08, 2016 Admitting Diagnosis penetrating injury buttock (1) Penetrating injury Diagnosis: Principal (2) Open wound of buttock Diagnosis: Principal (3) Buttock wound Diagnosis: Principal CBC/BMP: 10/07/16 0406 10/07/16 0406 Significant Findings Laboratory Tests Test 10/07/16 04:06 Red Blood Count 4.06 MIL/MM3 (4.50-5.90) Hemoglobin 12.6 GM/DL (13.0-17.0) Hematocrit 37.1 % (39.0-51.0) Platelet Count 104 TH/MM3 (150-450) Estimat Glomerular Filtration 87 ML/MIN (>89) Rate Calcium Level 8.2 MG/DL (8.5-10.1) Imaging Last Impressions Chest CT 10/04/16 1254 Signed Impressions: Service Date/Time: Tuesday, October 04, 2016 13:01 - CONCLUSION: Normal examination. Sheryl Mejia MD Pelvis X-Ray 10/04/16 1249 Signed Impressions: Service Date/Time: Tuesday, October 04, 2016 12:41 - CONCLUSION: Soft tissue swelling and small foreign bodies identified in the left buttocks region following trauma. Boris Torres MD Chest X-Ray 10/04/16 1249 Signed Impressions: Service Date/Time: Tuesday, October 04, 2016 12:41 - CONCLUSION: No acute disease. Boris Torres MD Abdomen/Pelvis CT 10/04/16 1249 Signed Impressions: Service Date/Time: Tuesday, October 04, 2016 13:01 - CONCLUSION: Evidence for soft tissue injury as described above. Scattered radiopaque foreign material is present in the left gluteus. Nolberto James MD FACR PE at Discharge GENERAL: This is a 51-year-old standing OOB in his room. SKIN: Warm and dry. Wound VAC in place to the LEFT and RIGHT buttocks with good seal. HEAD: Atraumatic. Normocephalic. EYES: PERRLA ENT: No nasal bleeding or discharge. Mucous membranes pink and moist. NECK: Trachea midline. No JVD. CARDIOVASCULAR: Regular rate and rhythm. RESPIRATORY: No accessory muscle use. Lungs are clear to auscultation. Breath sounds equal bilaterally. No distress or dyspnea. GASTROINTESTINAL: BS + x 4 quads. Abdomen soft, non-tender, nondistended. MUSCULOSKELETAL: Extremities without cyanosis, or edema. + peripheral pulses x 4 extremities. Warm with good capillary refill and sensation. MAEW. NEUROLOGICAL: Awake and alert. Normal speech and pattern. Hospital Course This is a 51-year-old gentleman who fell approximately 15 feet, and was impaled in his buttocks 2 with dirty metal rods. (The patient self removed them) INJURIES: Bilateral penetrating wounds to both buttocks. 10/04: Exploration, debridement and washout of 2 gluteal wounds with wound VAC application to the LEFT gluteal wound. 10/06: I&D and wound VAC Placement to bilateral gluteal wounds. The patient is now tolerating a po diet. Eating and drinking well. Pain is being managed well with PO pain medications, and patient is being a provided with a script for pain meds upon discharge. (NO driving while taking narcotic pain medication enforced to patient.) Pt is having regular bowel movements, and have recommended to patient to continue with stool softeners while taking narcotic pain medications. Pt has been participating in PT while admitted at [facility] and has been ambulating with their assistance and independently . All follow up appointments have been provided and discussed with the patient. It is recommended that the patient keeps all his follow up appointments for continued recovery. Patient has been set up with home health nursing for dressing changes to his 2 gluteal wounds. It is reinforced to the patient the importance of these dressing changes to promote good wound healing and prevent infection. Patient verbalizes understanding. Therefore, the patient is stable to be safely discharged home from a trauma surgery standpoint. Thank you for allowing us to participate in his care. We wish Stacy the best in his recovery. Pt Condition on Discharge: Stable Discharge Disposition: Disch w/ Home Health Serv Discharge Instructions DIET: Follow Instructions for: As Tolerated, No Restrictions Activities you can perform: Regular-No Restrictions Activities to Avoid: Driving for 24 hrs, Concussion Sports, Contact Sports, Lifting/Bending, Prolonged Standing, Strenuous Activity, Bathing Amy Landa Oct 08, 2016 16:08
== END 2016-10-08 17:03 | disposition home health service (06) | DRG 572 ==
LOC: NEPI 12:41 → NEDA 13:05 → EDBD 13:05 → N07B 17:21
PROVIDERS: ADMIT Surgery Trauma Surgery; ATTEND Surgery Trauma Surgery
PROC: 0JD90ZZ Extraction of Buttock Subcutaneous Tissue and Fascia, Open Approach (ICD-10-PCS; 2016-10-04)
PROC: 0JB90ZZ Excision of Buttock Subcutaneous Tissue and Fascia, Open Approach (ICD-10-PCS; principal; 2016-10-04 14:11)
PROC: 0JD90ZZ Extraction of Buttock Subcutaneous Tissue and Fascia, Open Approach (ICD-10-PCS; 2016-10-06)
DX: S31.824A Puncture wound with foreign body of left buttock, initial encounter (principal); S31.814A Puncture wound with foreign body of right buttock, initial encounter; W17.89XA Other fall from one level to another, initial encounter; Y93.9 Activity, unspecified
CPT/HCPCS: 71010; 71260; 72170; 74177; 80048; 80074; 82435; 82565; 82947; 83735; 84132; 84295; 84520; 85025; 85027; 85610; 85730; 86850; 86900; 86901; 90471; 90715; 94150; 96374; 96375; 99291; G0390; J0690; J1170; J1650; J2060; J2175; J2250; J2270; J2370; J2405; J2543; J2710; J3010; J3370; J7120; Q9967